=== PATIENT | male | born 1965 | race American Indian/Alaskan Native ===

== ENCOUNTER 2019-04-27 11:41 | Emergency (ER) | payer OTHER ==
[2019-04-27] MEDS ORDERED: XYLOCAINE 1% 20 mL INFILTRATI ONE (12:56)
[2019-04-27] MEDS ORDERED: KEFLEX PO ONE (12:58)
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
[2019-04-27 13:51] VITALS: BP 125/69
== END 2019-04-27 13:50 | disposition home or self-care (01) ==
LOC: ED 11:41
DX: S01.511A Laceration without foreign body of lip, initial encounter (principal); Z79.899 Other long term (current) drug therapy; Z88.6 Allergy status to analgesic agent; W45.8XXA Other foreign body or object entering through skin, initial encounter; Y93.89 Activity, other specified; Y92.89 Other specified places as the place of occurrence of the external cause; Y99.8 Other external cause status
CPT/HCPCS: 99282